=== PATIENT | female | born 1930 | race Caucasian/White ===

== ENCOUNTER 2017-04-11 13:45 | Inpatient (IN) | payer MEDICARE ==
[~2017-04-11] VITALS: Ht 172.7 cm; Wt 84.4 kg
[2017-04-11 15:07] LABS: BASOPHILS 0.3 % (0-2); EOSINOPHILS 0.3 % (0-7); HEMATOCRIT 32.7 % (36.0-48.0); HEMOGLOBIN 10.6 g/dL (12-16); IMMATURE GRANULOCYTES 0.1 % (0-5); LYMPHOCYTES 13.7 % (15-50); MCH 29.3 pg (26.0-34.0); MCHC 32.4 g/dL (31.0-37.0); MCV 90.3 fL (80.0-100.0); MEAN PLATELET VOLUME 10.6 fL (7.4-10.4); MONOCYTES 5.9 % (2-11); NEUTROPHILS 79.7 % (40-80); PLATELET COUNT 224 10x3/uL (130-400); RBC 3.62 10x6/uL (4.00-5.40); RDW 14.4 % (11.5-14.5); WBC 7.2 10x3/uL (4.8-10.8)
[2017-04-11 15:28] LABS: ALBUMIN 2.6 g/dL (3.4-5.0); ALKALINE PHOSPHATASE 61 U/L (46-116); ALT (SGPT) 13 U/L (10-68); CALC OSMOLALITY 277 mosm/kg (275-300); CALCIUM 8.3 mg/dL (8.5-10.1); CARBON DIOXIDE 24.7 mmol/L (21.0-32.0); CHLORIDE - SERUM 104 mmol/L (98-107); CREATININE - SERUM 0.8 mg/dL (0.6-1.3); GLUCOSE 127 mg/dL (74-106); PROTEIN - SERUM 5.9 g/dL (6.4-8.2); SODIUM 138 mmol/L (136-145); UREA NITROGEN 12 mg/dL (7-18); eGFR NON AFRICAN AMERICAN 72 mL/min (90-120)
[2017-04-11 15:34] LABS: CKMB 0.7 U/L (0.0-3.6); CREATINE KINASE 50 UL (21-215); TROPONIN-I < 0.017 ng/mL (0.000-0.060)
--- NOTE | 2017-04-11 15:55 | NUR ---
RECEIVED TO ROOM 2223 VIA BED. TRANSFERRED TO BED. PATIENT HAD AN INCONTINENT EPISODE SO ADVERTISING SALES AGENT GAVE PATIENT A PARTIAL BATH.
[2017-04-11 16:01] VITALS: BP 124/73
--- NOTE | 2017-04-11 16:05 | NUR ---
CONSENT FORMS SIGNED AND WITNESSED.
--- NOTE | 2017-04-11 16:18 | NUR ---
CONSENT FORMS SIGNED AND WITNESSED AND PREOP MEDS ADMINISTERED. FAMILY IN ROOM.
[2017-04-11 16:31] VITALS: BMI 28.3
[2017-04-11] MEDS ORDERED: MIRAPEX1 MG PO (16:43)
[2017-04-11] MEDS ORDERED: BENICAR40 MG PO (16:44)
[2017-04-11] MEDS ORDERED: LEXAPRO10 MG (16:44)
[2017-04-11] MEDS ORDERED: OMEPRAZOLE20 M1 PO (16:45)
[2017-04-11] MEDS ORDERED: CYCLOBENZAPRINE5 MG PO (16:45)
--- NOTE | 2017-04-11 16:50 | NUR ---
TO OR VIA BED.
--- NOTE | 2017-04-11 19:10 | NUR ---
RECEIVED BACK TO ROOM. FAMILY IN ROOM. FAMILY REQUESTED PAIN PILL TO BE GIVEN TO PATIENT SO IT WAS ADMINISTERED. CALL LIGHT IN REACH. [facility], ALSO IN ROOM.
[2017-04-11 19:50] VITALS: BP 167/97
[2017-04-11 20:14] VITALS: BP 143/84; BP 159/101
--- NOTE | 2017-04-11 20:38 | NUR ---
PATIENT RESTING COMFORTABLY WITH NO COMPLAINTS. RIGHT LEG ELEVATED AND ICED. NO NEEDS NOTED FROM THE PATIENT.
[2017-04-11 21:41] VITALS: BP 148/89
[2017-04-11 22:19] LABS: CKMB 1.5 U/L (0.0-3.6); CREATINE KINASE 80 UL (21-215)
[2017-04-11 22:20] LABS: TROPONIN-I < 0.017 ng/mL (0.000-0.060)
[2017-04-12] VITALS: BP 122/64
[2017-04-12 04:00] VITALS: BP 125/76
--- NOTE | 2017-04-12 04:41 | NUR ---
NO CHANGES SINCE ASSESSMENT
--- NOTE | 2017-04-12 04:45 | NUR ---
PT RESTING QUIETLY, EYES CLOSED. RESP EVEN, UNLABORED. NO DISTRESS NOTED. CONTINUE VIBRATOR OPERATOR'S PLAN OF CARE.
[2017-04-12 05:18] LABS: CREATINE KINASE 93 UL (21-215)
[2017-04-12 05:21] LABS: TROPONIN-I 0.016 ng/mL (0.000-0.060)
[2017-04-12 07:06] VITALS: BP 119/68
[2017-04-12 10:41] VITALS: Ht 172.7 cm; Wt 84.4 kg
--- NOTE | 2017-04-12 10:54 | OP ---
PATIENT NAME: FERNANDA CHEEMA MEDICAL RECORD: [id number] :[birth year] LOCATION: D.2223 ADMISSION DATE:04/11/17 SURGEON: SHOBHA REYES DO DATE OF OPERATION: 04/11/2017 PROCEDURE PERFORMED: Right ankle open reduction and internal fixation. PREOPERATIVE DIAGNOSIS: Right ankle bimalleolar fracture dislocation. POSTOPERATIVE DIAGNOSIS: Right ankle bimalleolar fracture dislocation. INDICATIONS: Ms. Cheema is an 86-year-old female who has been having syncopal episodes as of late and today, she had one after getting up off the toilet, twisted her right leg and noticed it was deformed. She could not put weight on it. She was taken to the Emergency Room, seem to have a right ankle fracture dislocation. I saw her in the Emergency Room. Informed her that she would need surgery and better do it now and get the ankle reduced and to be in a stable position. Once this was done, she has consented for the procedure and informed of the risks and benefits including infection, bleeding, and damage to nerves. She was okay with this and consented to the procedure. DESCRIPTION OF PROCEDURE: The patient was taken to the preoperative area. Her incision site was marked and then the consent was signed and the patient was given a block by anesthesia. Once this was done, she was taken to the operative suite, laid in supine position, given a gram of Ancef preoperatively. The right leg was prepped and draped in sterile fashion. A tourniquet was placed above the knee and the patient was placed on bone foam. Once this was done, however, a timeout was performed. Everyone is in agreeance to correct side, site, and patient. The right lower extremity was exsanguinated with an Esmarch and tourniquet was inflated. Tourniquet was up for 48 minutes total during the procedure. Once tourniquet was inflated, the lateral malleolus was started first. An incision was made right over the fibula. Careful dissection was made down to the fibula plate. A reduction maneuver was made. Plate was placed on the fibula and pinned into place and then readjusted lateral and seen to be in good position. We started with putting 5 locking screws in distally first and then 2 locking screws proximally due to the poor quality of bone and additional locking screw was attempted to be placed, but would not lock into the plate and so was aborted. The attention was then drawn to the medial malleolus. A curvilinear incision was made over the joint line. Dissection was made down to it and the 2 pins were placed. K-wires were placed up into the medial side of the tibia just off the medial malleolus and reduction was seen to be made nicely. One fully threaded 40-mm screw was used at that time after seem to have good reduction. The near cortex was overdrilled over one of the K-wires and the 40-mm fully threaded screw was advanced over that. This seemed to be in good position and the fracture was very stable, so the choice was made just to put 1 screw and then attention was drawn to the ankle itself, seemed to be in good reduction and a stress view was done and in order for better stability due to the fact she has dislocated, it was decided to put a ZipTight across the fibula and tibia. This was done and cinched down and then tied over the lateral side through the plate of the fibula. Once this was done, the ankle was stressed again and seemed to be very stable both in the AP plane and the mortise view and anterior, posterior, wherever it was dislocated was seen to be in good position. After this was done, the tourniquet was let down 48 minutes. The wounds were irrigated and closed. Medial side was closed with 2-0 Vicryl under the skin and then 4-0 Monocryl on the skin in a horizontal mattress fashion. The lateral OPERATIVE REPORT [id number] FERNANDA CHEEMA side soft tissue was used and the fascia was used to cover the plate under the skin and then the skin with 2-0 Vicryl and then 2-0 Vicryl was used to subcuticularly close the skin and then a ZipLine was used on the lateral side of the ankle. Once this was done, Adaptic, 4 x 4's, ABD were placed over the incisions and an ABD was placed on the heel and a Webril was used to wrap the foot and then a posterior splint was placed on the patient and wrapped with an Carlin wrap. After this, the patient was awakened and taken to recovery in stable condition. TRANSINT:[id number] Voice Confirmation ID: [id number] DOCUMENT ID: [id number] SHOBHA REYES DO at 1054 CC: [id number] DICTATION DATE: 04/11/171851 LOGISTICS LEAD: 04/11/17 214 ADM IN [facility] [address] [id number]
[2017-04-12 10:58] VITALS: BP 110/67
[2017-04-12 15:02] VITALS: BP 120/64
[2017-04-12 20:00] VITALS: BP 135/67
[2017-04-13] VITALS: BP 123/63
--- NOTE | 2017-04-13 01:39 | NUR ---
PT RESTING QUIETLY, EYES CLOSED. RESP EVEN, UNLABORED. NO DISTRESS NOTED. CONTINUE LEGAL RECEPTIONIST'S PLAN OF CARE.
[2017-04-13 04:00] VITALS: BP 138/77
--- NOTE | 2017-04-13 08:00 | NUR ---
ASSESSMENT PER FLOW SHEET.PT WITHOUT DISTRESS.CALL LIGHT IN REACH
[2017-04-13 08:54] VITALS: BP 141/79
--- NOTE | 2017-04-13 15:19 | NUR ---
FAMILY HAS BEEN AT SIDE.LLE ELEVATED ON PILLOWS X3. REMAINS WITHOUT NEEDS
--- NOTE | 2017-04-13 15:49 | NUR ---
BED CHANGE,PT INCONTINENT OF URINE.PT WASHED AND SKIN DRIED.PT WITHOUT BREAKDOWN. PAIN BETTER AFTER MEDS ORDERED
--- NOTE | 2017-04-13 17:18 | NUR ---
DENIES NEEDS.PAIN CONTROLLED. WITHOUT CHANGE FROM J INITIAL SHIFT ASSESSMENT.CONT PLAN OF CARE
[2017-04-13 20:00] VITALS: BP 132/64
--- NOTE | 2017-04-14 00:19 | NUR ---
PATIENT SLEEPING IN BED, NO NEEDS NOTED. NO CHANGES SINCE ASSESSMENT
[2017-04-14 04:00] VITALS: BP 129/69
--- NOTE | 2017-04-14 06:54 | NUR ---
PT RESTING QUIETLY, EYES CLOSED. RESP EASY, UNLABORD. NO DISTRESS NOTED. CONTINUE IAP DISPLAYS ANALYST'S PLAN OF CARE.
--- NOTE | 2017-04-14 07:50 | NUR ---
ASSESSMENT COMPLETE. IV TO L AC PATENT. NS INFUSING AT 75 CC/HR VIA PUMP. WALKING BOOT IN USE TO R FOOT. ABHISHEK ALARM IN USE. DENIES ANY COMPLAINT OF PAIN AT THIS TIME.
[2017-04-14 08:29] VITALS: BP 172/93
--- NOTE | 2017-04-14 09:28 | NUR ---
Patient Name: FERNANDA GILBERT Admission Status: ER Accout number: [id number] Admission Date: 04-11-2017 : 1929 Admission Diagnosis: Attending: VALENTE SAUER Current LOS: 3 Anticipated DC Date: 04-14-2017 Planned Disposition: Home Primary Insurance: MEDICARE A & B Discharge Planning Comments: CM MET WITH PATIENT REGARDING D/C NEEDS AND PLANS. PATIENT STATED SHE LIVES ALONE BUT WILL BE STAYING WITH HER GRANDDAUGHTER (AMADEO) AT DISCHARGE. THERE ARE NO STEPS OR STAIRS AT PATIENTS HOME OR GRANDDAUGHTERS HOME. PATIENT STATED SHE IS INDEPENDENT WITH HER CARE AND HAS A WHEELCHAIR, SHOWER CHAIR, AND CANE AVAILABLE. PATIENTS PCP IS DR. KWOK IN [facility] IN [place]. PATIENT DID NOT WANT HOME HEALTH AT THIS TIME. CM WILL CONTINUE TO FOLLOW PATIENT WITH D/C NEEDS AND PLANS. PCP DR. SUNDAR FANG IN [facility] AMADEO (GRANDDAUGHTER) Cartridge Loader: Jacqueline Kurtz Is the patient Alert and Oriented? Yes 0 * How many steps to enter\exit or inside your home? 0 0 * PCP DR. KWOK 0 * Pharmacy [facility] 0 * Preadmission Environment Home Alone 0 * ADLs Independent 0 * Equipment Cane Shower Chair Wheelchair 0 * List name and contact numbers for known caregivers / representatives who currently or will assist patient after discharge: AMADEO WHITE (GRANDDAUGHTER) KASSIE MILLER (SISTER) [phone] * Community resources currently utilized None 0 * Additional services required to return to the preadmission environment? Yes 0 * Can the patient safely return to the preadmission environment? Yes 0 * Has this patient been hospitalized within the prior 30 days at any hospital? No 0 Grand Total: 0
[2017-04-14 09:47] LABS: BASOPHILS 0.2 % (0-2); EOSINOPHILS 3.1 % (0-7); HEMATOCRIT 30.3 % (36.0-48.0); HEMOGLOBIN 9.6 g/dL (12-16); IMMATURE GRANULOCYTES 0.2 % (0-5); LYMPHOCYTES 27.8 % (15-50); MCH 29.4 pg (26.0-34.0); MCHC 31.7 g/dL (31.0-37.0); MCV 92.7 fL (80.0-100.0); MEAN PLATELET VOLUME 10.7 fL (7.4-10.4); NEUTROPHILS 60.7 % (40-80); PLATELET COUNT 203 10x3/uL (130-400); RBC 3.27 10x6/uL (4.00-5.40); RDW 14.6 % (11.5-14.5); WBC 4.9 10x3/uL (4.8-10.8)
[2017-04-14 10:02] LABS: ALBUMIN 1.9 g/dL (3.4-5.0); ALKALINE PHOSPHATASE 51 U/L (46-116); ALT (SGPT) 21 U/L (10-68); BILIRUBIN - TOTAL 0.32 mg/dL (0.2-1.3); CALC OSMOLALITY 282 mosm/kg (275-300); CALCIUM 7.6 mg/dL (8.5-10.1); CARBON DIOXIDE 27.6 mmol/L (21.0-32.0); CHLORIDE - SERUM 108 mmol/L (98-107); CREATININE - SERUM 0.7 mg/dL (0.6-1.3); GLUCOSE 139 mg/dL (74-106); POTASSIUM - SERUM 3.3 mmol/L (3.5-5.1); PROTEIN - SERUM 5.2 g/dL (6.4-8.2); SODIUM 142 mmol/L (136-145); UREA NITROGEN 6 mg/dL (7-18); eGFR NON AFRICAN AMERICAN 84 mL/min (90-120)
[2017-04-14] MEDS ORDERED: HYDROCODON-ACE1 EAC7 PO (10:42)
--- NOTE | 2017-04-14 11:17 | NUR ---
CM REC. PHONE CALL FROM PATIENTS DAUGHTER IN LAW QIANA REGARDING PATIENT GOING HOME WITH GRANDDAUGHTER. QIANA STATED IT WAS UNACCEPTABLE FOR HER TO GO THERE AND THAT THEY WANTED HER IN A FPC AROUND [place]. CM STATED PATIENT WAS ALERT AND ORIENTED AND STATED SHE WAS GOING TO GRANDDAUGHTERS HOME BECAUSE EVERYONE ELSE WAS WORKING OR BUSY. CM WENT TO PATIENTS ROOM AND TOLD PATIENT THEY DID NOT WANT PATIENT GOING TO GRANDDAUGHTERS BECAUSE SHE TOOK PAIN PILLS. PATIENTS STATED "THAT PISSES ME OFF" BY [facility] WILL DO ANYTHING FOR ME AND TAKE ME TO APPOINTMENTS. I AM GOING TO MY GRANDDAUGHTERS AND THATS IT." PATIENTS CHOSE [facility] AND SIGNED THE JAMEY FORM. CM CALLED QIANA BACK AND STATED PATIENT CHOSE TO GO TO GRANDDAUGHTERS HOME AND HAS PICKED OUT A HOME HEALTH. CM STATED SHE COULD VISIT PATIENT IF SHE WAS WORRIED ABOUT HER AND SHE STATED "NO I AM NOT INTERESTED" AND HUNG UP PHONE. CM WILL CONTINUE TO FOLLOW PATIETN WITH D/C NEEDS AND PLANS.
[2017-04-14] MEDS ORDERED: ELIQUIS2.5 MG PO (11:24)
[2017-04-14 12:05] VITALS: BP 142/78
--- NOTE | 2017-04-14 12:15 | NUR ---
CM REASSESSMENT NOTE: PATIENT DISCHARGING TODAY TO HER GRANDDAUGHTERS HOME/GD IS DRIVING HER. D/C IMM SERVED TODAY. WALKER TO BE DELIVERED BEFORE D/C. [facility] TO DELIVER.
--- NOTE | 2017-04-14 13:25 | NUR ---
DISCHARGE TEACHING GIVEN TO PATIENT AND FAMILY. VOICED UNDERSTANDING. SCRIPTS FOR ELIQUIS AND NORCO GIVEN TO PATIENT. DR REYES'S WRITTEN INSTRUCTIONS WITH DISCHARGE TEACHING PAPERWORK. AWAITING DELIVERY OF WALKER FROM [facility].
--- NOTE | 2017-04-14 14:15 | NUR ---
WALKER DELIVERED. DC'D HOME WITH GRANDDAUGHTER. ESCORTED TO VEHICLE BY [facility] DIRECTOR VIA WC WITH BELONGINGS AND WALKER.
== END 2017-04-14 14:15 | disposition home health service (06) | DRG 493 ==
LOC: D.ER 13:45 → D.MS 15:07
PROVIDERS: Family Medicine; Orthopaedic Surgery; ADMIT Family Medicine Adult Medicine
PROC: 0QSG0ZZ Reposition Right Tibia, Open Approach (ICD-10-PCS; 2017-04-11)
PROC: 0QSJ0ZZ Reposition Right Fibula, Open Approach (ICD-10-PCS; principal; 2017-04-11 16:07)
DX: S82.841A Displaced bimalleolar fracture of right lower leg, initial encounter for closed fracture (principal); D62 Acute posthemorrhagic anemia; W01.0XXA Fall on same level from slipping, tripping and stumbling without subsequent striking against object, initial encounter; R55 Syncope and collapse; Z95.0 Presence of cardiac pacemaker